=== PATIENT | female | born 1980 | race African-American/Black ===

== ENCOUNTER → 2016-06-14 | Outpatient (REF) | payer OTHER | LOC: M SFHCLERA 11:12 | PROVIDERS: ATTEND Family Medicine | DX: J35.8 Other chronic diseases of tonsils and adenoids (principal) ==

== ENCOUNTER → 2016-06-21 | Outpatient (REF) | payer OTHER | LOC: M SFHCLERA 18:54 | PROVIDERS: ATTEND Physician Assistant | DX: N89.8 Other specified noninflammatory disorders of vagina (principal) ==

== ENCOUNTER → 2016-11-16 | Outpatient (REF) | payer OTHER ==
[2016-11-16 12:19] LABS: ALBUMIN 3.7 GM/DL (3.2-5.2); ALBUMIN/GLOBULIN RATIO 1.06 (1.00-1.93); ALKALINE PHOSPHATASE 50 U/L (45-117); ALT/SGPT 17 U/L (12-78); ANION GAP 7 MEQ/L (8-16); AST/SGOT 9 U/L (15-37); BILIRUBIN,TOTAL 0.5 MG/DL (0.2-1.0); BLOOD UREA NITROGEN 12 MG/DL (7-18); CALCIUM LEVEL 8.5 MG/DL (8.5-10.1); CARBON DIOXIDE LEVEL 25 MEQ/L (21-32); CHLORIDE LEVEL 110 MEQ/L (98-107); CHOLESTEROL LEVEL 144 MG/DL (<200); CREATININE FOR GFR 0.78 MG/DL (0.55-1.02); GLOMERULAR FILTRATION RATE > 60.0 (>60); GLUCOSE, FASTING 90 MG/DL (70-105); POTASSIUM SERUM 3.8 MEQ/L (3.5-5.1); SODIUM LEVEL 142 MEQ/L (136-145); TOTAL PROTEIN 7.2 GM/DL (6.4-8.2); TRIGLYCERIDES LEVEL 49 MG/DL (<150)
== END ==
LOC: M SFHCLERA 07:52
PROVIDERS: ATTEND Physician Assistant
DX: Z13.220 Encounter for screening for lipoid disorders (principal); R53.83 Other fatigue

== ENCOUNTER → 2016-12-06 | Outpatient (REF) | payer OTHER | LOC: M LAB REF 14:01 | PROVIDERS: ATTEND Specialist | DX: Z01.419 Encounter for gynecological examination (general) (routine) without abnormal findings (principal); Z11.51 Encounter for screening for human papillomavirus (HPV) ==

== ENCOUNTER → 2017-01-26 | Outpatient (REF) | payer OTHER ==
[2017-01-31 08:06] LABS: O+P EXAM Final report (.)
== END ==
LOC: M SFHCLERA 20:10
PROVIDERS: ATTEND Nurse Practitioner Family
DX: L29.0 Pruritus ani (principal)

== ENCOUNTER 2017-05-02 07:11 | Emergency (ER) | payer OTHER ==
[2017-05-02] MEDS: GI COCKTAIL 50ML BTL(HYOSCYAMINE/MAALOX/LIDOCAINE VISCOUS)(1:3:1) PO (07:48)
[2017-05-02 08:15] LABS: BASO % 0.8 % (0.0-1.0); EOS # 0.1 10^3/uL (0.0-0.50); EOS % 3.4 % (0.0-3.0); HEMATOCRIT 39.8 % (36.0-47.0); HEMOGLOBIN 13.2 g/dl (12.0-16.0); LYMPH # 1.4 10^3/uL (1.5-4.5); MEAN CORPUSCULAR HEMOGLOBIN 27.9 pg (27.0-33.0); MEAN CORPUSCULAR HGB CONC 33.2 g/dl (32.0-36.5); MEAN CORPUSCULAR VOLUME 84.1 fl (80.0-96.0); MONO # 0.4 10^3/uL (0.0-0.8); MONO % 15.4 % (0.0-5.0); NEUTROPHILS % 27.4 % (36.0-66.0); PLATELET COUNT, AUTOMATED 143 10^3/uL (150-450); RED BLOOD COUNT 4.73 10^6/uL (4.00-5.40); RED CELL DISTRIBUTION WIDTH 13.4 % (11.5-14.5); WHITE BLOOD COUNT 2.7 10^3/uL (4.0-10.0)
[2017-05-02 08:41] LABS: TROPONIN I < 0.02 NG/ML (< 0.10)
[2017-05-02 08:44] LABS: NEUTROPHILS # 0.7 10^3/uL (1.8-7.7); POSITIVE DIFF POS FLAG
== END 2017-05-02 09:28 | disposition home or self-care (01) ==
LOC: M ED 07:11
DX: M94.0 Chondrocostal junction syndrome [Tietze] (principal)
CPT/HCPCS: 93005

== ENCOUNTER → 2017-08-11 | Outpatient (REF) | payer OTHER | LOC: M SFHCLERA 20:58 | DX: J02.9 Acute pharyngitis, unspecified (principal) ==

== ENCOUNTER → 2017-09-12 | Outpatient (REF) | payer OTHER ==
[2017-09-12 11:22] LABS: BASO % 0.7 % (0.0-1.0); EOS # 0.1 10^3/uL (0.0-0.50); EOS % 3.3 % (0.0-3.0); HEMATOCRIT 37.9 % (36.0-47.0); HEMOGLOBIN 12.5 g/dl (12.0-15.5); LYMPH # 1.3 10^3/uL (1.5-4.5); MEAN CORPUSCULAR HEMOGLOBIN 28.2 pg (27.0-33.0); MEAN CORPUSCULAR VOLUME 85.4 fl (80.0-96.0); MONO # 0.4 10^3/uL (0.0-0.8); MONO % 12.4 % (0.0-5.0); NEUTROPHILS # 1.3 10^3/uL (1.8-7.7); NEUTROPHILS % 40.6 % (36.0-66.0); PLATELET COUNT, AUTOMATED 139 10^3/uL (150-450); RED BLOOD COUNT 4.44 10^6/uL (4.00-5.40); RED CELL DISTRIBUTION WIDTH 13.7 % (11.5-14.5); WHITE BLOOD COUNT 3.1 10^3/uL (4.0-10.0)
[2017-09-12 11:44] LABS: CHOLESTEROL LEVEL 158 MG/DL (<200); CHOLESTEROL RISK RATIO 2.981 (<5); HDL CHOLESTEROL 53 MG/DL (>40); LDL CHOLESTEROL 94.2 MG/DL (<100); NON-HDL-C 105 MG/DL; THYROID STIMULATING HORMONE 0.539 uIU/ML (0.358-3.740); TRIGLYCERIDES LEVEL 54 MG/DL (<150)
[2017-09-12 11:57] LABS: ESTIMATED AVERAGE GLUCOSE 103 MG/DL (60-110); HEMOGLOBIN A1c 5.2 %
== END ==
LOC: M SFHCLERA 08:51
DX: Z13.220 Encounter for screening for lipoid disorders (principal); Z13.1 Encounter for screening for diabetes mellitus; Z86.39 Personal history of other endocrine, nutritional and metabolic disease; Z86.2 Personal history of diseases of the blood and blood-forming organs and certain disorders involving the immune mechanism
CPT/HCPCS: 84443

== ENCOUNTER → 2017-12-07 | Outpatient (REF) | payer OTHER | LOC: M SFHCLERA 08:24 | DX: D72.819 Decreased white blood cell count, unspecified (principal) ==

== ENCOUNTER → 2017-12-08 | Outpatient (REF) | payer OTHER ==
[2017-12-15 14:57] LABS: HPV LOW VOL RFLX Negative (Negative)
== END ==
LOC: M LAB REF 17:12
DX: Z12.4 Encounter for screening for malignant neoplasm of cervix (principal)